=== PATIENT | male | born 1975 | race Caucasian/White ===

== ENCOUNTER → 2020-05-25 | Outpatient (CLI) | payer OTHER ==
[~2020-05-25] MED LIST: ADMELOG100 UNIT/1 SC; BASAGLAR K100 UNIT/1 SQ; DOXYCYCLINE HY100 MG PO; IBUPROFEN400 MG PO; LEVAQUIN500 MG PO; LORTAB 5-325 M1 EACH PO; PREDNISONE 20 M20 MG PO; PROAIR HFA8.5 GM INH; ZYVOX600 MG PO
== END ==
LOC: KOH-I 16:36
DX: M25.511 Pain in right shoulder (principal); M25.512 Pain in left shoulder; G89.29 Other chronic pain; M25.811 Other specified joint disorders, right shoulder; M19.012 Primary osteoarthritis, left shoulder
CPT/HCPCS: 73030

== ENCOUNTER → 2020-06-14 | Outpatient (CLI) | payer OTHER | LOC: KOH-I 12:00 | DX: M54.41 Lumbago with sciatica, right side (principal); G89.29 Other chronic pain; M47.816 Spondylosis without myelopathy or radiculopathy, lumbar region | CPT/HCPCS: 72100 ==

== ENCOUNTER 2020-09-01 11:25 | Emergency (ER) | payer OTHER ==
[~2020-09-01 11:25] MED LIST changes: -DOXYCYCLINE HY100 MG PO; -PREDNISONE 20 M20 MG PO; -PROAIR HFA8.5 GM INH
[2020-09-01 12:52] LABS: HEMOGLOBIN 15.1 gm/dl (14.0-17.5); RED BLOOD COUNT 4.98 M/UL (4.20-5.50); WHITE BLOOD COUNT 7.6 K/UL (4.5-11.0)
[2020-09-01 13:19] LABS: BUN/CREATININE RATIO 17 (0-10)
[2020-09-01] MEDS ORDERED: DOXYCYCLINE HY100 MG PO (17:15)
[2020-09-01] MEDS ORDERED: PROAIR HFA8.5 GM INH (17:15)
[2020-09-01] MEDS ORDERED: PREDNISONE 20 M20 MG PO (17:15)
== END 2020-09-01 17:28 | disposition home or self-care (01) ==
LOC: ER1 11:25
PROVIDERS: Physician Assistant
DX: J44.0 Chronic obstructive pulmonary disease with (acute) lower respiratory infection (principal); J18.9 Pneumonia, unspecified organism; M62.82 Rhabdomyolysis; R07.9 Chest pain, unspecified; E11.9 Type 2 diabetes mellitus without complications; I10 Essential (primary) hypertension; F17.200 Nicotine dependence, unspecified, uncomplicated; Z88.0 Allergy status to penicillin; Z79.899 Other long term (current) drug therapy; Z20.822 Contact with and (suspected) exposure to COVID-19
CPT/HCPCS: 0240U; 71045; 80053; 82550; 82553; 83874; 84484; 85025; 87081; 87880; 93005; 94640; 94664; 96374; 99285; J2930

== ENCOUNTER → 2021-08-17 | Outpatient (CLI) | payer OTHER ==
[~2021-08-17] MED LIST changes: +DOXYCYCLINE HY100 MG PO; +PREDNISONE 20 M20 MG PO; +PROAIR HFA8.5 GM INH
== END ==
LOC: RAD 11:31
DX: M54.2 Cervicalgia (principal); M25.512 Pain in left shoulder; M47.812 Spondylosis without myelopathy or radiculopathy, cervical region
CPT/HCPCS: 72040; 73030